=== PATIENT | female | born 1935 | race Caucasian/White ===

== ENCOUNTER 2019-09-24 14:12 | Inpatient (IN) ==
--- NOTE | 2019-09-24 16:56 | HISTORY AND PHYSICAL ---
Ms. Sinha stated that she was in normal state of health. They were headed to the [employer] market in [place] with her 2 daughters and early this morning her daughters noticed trouble with her speech. She said she did not have chest pain. She could not really tell, maybe her speech was a little slow but her daughter felt like she had slurred her words and they went to [facility]. There, there was no other focal neurologic deficits found. There was mild expressive aphasia. She had no trouble answering questions an articulating words when I spoke to her in the emergency room here at [facility] which was about 4 p.m. She still denied chest pain or palpitations or fever, chills. No recent head trauma. PAST MEDICAL HISTORY: 1. Apparently history hypercholesterolemia. 2. Hypertension. 3. She had an episode that she thinks she had a light stroke earlier this year not sure when. 4. She has had some surgery last year. She could not tell me what was. ALLERGIES: She says penicillin allergy, not sure what causes. She thinks she may have been diagnosed with some atrial fibrillation but she is not sure about. She was worked up for some type of heart problem she could not remember what it was. Apparently she has had some gastroesophageal reflux symptoms in the past. SOCIAL HISTORY: Former smoker. Has not smoked in a long time. No alcohol or illicit drugs. FAMILY HISTORY: Mother had history of hypertension, not aware of anything else. She is apparently up-to-date with her immunizations influenza, pneumococcus. Last tetanus was within 10 years ago. REVIEW OF SYSTEMS: General: No weight gain or loss. No fever, chills. HEENT: Unremarkable. Respiratory: No increased work of breathing or dyspnea. Cardiovascular: No chest pain or tachy palpitations. GI/: No gross hematuria. No gross hematochezia. No complaints of constipation or diarrhea. Musculoskeletal/Neurologic: No focal deficits other than her speech. I did not notice weakness in her arms or legs. No visual change. Endocrinologic hematologic: No history that she is aware of. She denies any history of diabetes. MEDICATIONS: She is on AcipHex 20 mg a day, Celexa 20 mg a day, Coreg 25 mg twice a day, folic acid 1 mg a day, Lasix 40 mg a day, lisinopril 10 mg a day, Neurontin 300 mg capsule not sure how often she takes it, Norvasc 5 mg tablet once a day, Remeron 15 mg at bedtime. PHYSICAL EXAMINATION: In the emergency room, well-developed, well-nourished white female with no acute distress. Pupils are equal and round. LUNGS: Clear in all lung gamble. CARDIOVASCULAR: Regular rhythm and rate without murmur or S3. ABDOMEN: Soft. SKIN: Warm and dry. CVP less than 6 cm. No distended neck veins. No cervical or supraclavicular or axillary adenopathy. Neck was supple. No signs of thyromegaly or thyroid nodules. I could not appreciate any carotid bruits. Carotid, radial, and pedal pulses 2+ and symmetrical. Lungs are clear in all lung gamble anterior, posterior and lateral. Cardiovascular exam regular rhythm and rate without murmur or S3. Abdomen is soft. Skin is warm and dry. EKG shows sinus rhythm and really no suspicious ST segments. NEUROLOGIC: Cranial nerves 2-12 appear intact. Visual gamble are full. Hearing appears to be acute. She does not complain of any loss of hearing. Tongue is midline. Facial muscles are symmetrical. Shoulder shrug symmetrical and 4+, dry cleaning attendant strength is 4+ upper and lower extremities. Motor strength seems to be 4+ in all motor groups. No loss of sensation I can detect. LAB: That was drawn in [facility] white blood cell count 4100, hematocrit is 26, hemoglobin is 8.0, MCV of 89, platelet count 188,000. Sodium 140, potassium 4.1, chloride 105, bicarb 20, BUN 35, creatinine 1.47, alkaline phos 68, SGOT and SGPT are 14 and 6 respectively, albumin is 4.1. Pro time is 13, INR is 0.97, PTT is 27. Urinalysis is unremarkable. Chest x-ray was read as cardiomegaly, accentuated interstitial markings, hiatal hernia. No other acute findings. CT of the head without contrast no acute intracranial abnormality. Mild parenchymal atrophy, chronic microangiopathy. ASSESSMENT/PLAN: It appears she has had a transient ischemic event mainly located to her speech center and it seems to have resolved. Looking back at her records, echocardiogram was done in August 2018 and at that time left ventricular size was normal and she had an ejection fraction of 60%, moderate tricuspid regurgitation, moderate pulmonic insufficiency, aortic valve unremarkable, mitral valve had no prolapse and no regurgitation. We are going to check a noninvasive carotid studies on her neck and maybe pursue an MRI of her head on Thursday. We will follow her blood pressure. There is a questionable history of whether she has had atrial fibrillation. She is on aspirin but she does not take it every day. I will put her on aspirin every day for now. We will give her normal saline running at 85 mL an hour her and follow her blood pressures. Will put her back on her normal medications right now and check her thyroid, B12 and folate and go from there. cc: MD Marvin Martínez MD
[2019-09-24] MEDS: NS 1,000 ML IV SCH (18:31)
[2019-09-24] MEDS: ASPIRIN PO SCH (18:31)
[2019-09-24] MEDS: REMERON PO SCH (21:33)
[2019-09-24] MEDS: COREG PO SCH ×2 (21:33→21:37)
[2019-09-24 23:44] LABS: URINE SOURCE CLEAN CATCH
[2019-09-25 01:48] LABS: BILIRUBIN URINE NEGATIVE (NEGATIVE); BLOOD URINE TRACE (NEGATIVE); COLOR YELLOW; GLUCOSE URINE NEGATIVE (NEGATIVE); KETONE URINE NEGATIVE (NEGATIVE); LEUKOCYTES URINE LARGE (NEGATIVE); NITRITE URINE POSITIVE (NEGATIVE); PROTEIN URINE NEGATIVE (NEGATIVE); SP GRAVITY URINE 1.016; TURBIDITY URINE CLEAR (CLEAR); UR EPITHELIAL CELLS <10 /HPF (<10); URINE BACTERIA 4+ /HPF; URINE RBC <10 /HPF (<10); URINE WBC TNTC /HPF (<10); UROBILINOGEN URINE NORMAL (NORMAL)
[2019-09-25] MEDS: NS 1,000 ML IV SCH ×2 (05:05→17:52)
[2019-09-25] MEDS: PRILOSEC PO SCH (06:49)
[2019-09-25 06:56] LABS: BASO# 0.01 X1000 (0.0-0.2); BASO% 0.2 % (0.0-0.8); EOS# 0.17 X1000 (0.0-0.7); EOS% 3.9 % (0.0-10.0); HEMATOCRIT 24.4 % (37.0-47.0); HEMOGLOBIN 7.4 g/dL (12.0-16.0); LYMPH# 0.94 X1000 (1.2-3.4); LYMPH% 21.8 % (20.5-51.1); MCH 27.1 PG (27-31); MCHC 30.3 g/dL (33-37); MCV 89.4 FL (81-99); MPV 11.1 FL (7.4-10.4); NEUT# 2.89 X1000 (1.4-6.5); NEUT% 67.1 % (42.2-75.2); PLT 196 X1000 (130-400); RBC 2.73 XMIL (4.2-5.4); RDW 17.9 % (11.5-14.5); WBC 4.31 X1000 (4.8-10.8)
[2019-09-25 07:09] LABS: ALB/GLOB RATIO 1.5; ALBUMIN 3.5 g/dL (3.5-5.0); CALCIUM 8.9 mg/dL (8.8-10.2); CREATININE 1.3 mg/dL (0.5-0.9); POTASSIUM 4.1 mmol/L (3.5-5.1); TOTAL BILIRUBIN 0.39 mg/dL (0.20-1.00); TOTAL PROTEIN 5.8 g/dL (6.3-8.3)
[2019-09-25] MEDS: ASPIRIN PO SCH (08:56)
[2019-09-25] MEDS: COREG PO SCH ×2 (08:56→21:21)
[2019-09-25] MEDS: FOLIC ACID PO SCH (08:57)
[2019-09-25] MEDS ORDERED: LASIX PO SCH (09:00)
[2019-09-25] MEDS ORDERED: PRINIVIL PO SCH (09:00)
[2019-09-25] MEDS ORDERED: NORVASC PO SCH (09:00)
[2019-09-25] MEDS ORDERED: CELEXA PO SCH (09:00)
--- NOTE | 2019-09-25 15:19 | PROGRESS NOTE ---
DATE: 09/25/2019 Ms. Sinha feels better. Her speech is back to normal. Daughters had some concerns, 1 is that her short-term memory is poor and has been poor for a while. She had some left-sided back pain which sounds like musculoskeletal pain, sound like muscle spasm. They adjusted the height of her bed and that seemed to improve. She is sitting up in a chair. She is eating good swallowing fine. OBJECTIVE: Temperature 97.9 degrees, pulse 56, respirations 18, blood pressure 161/49. Pupils are equal and round.Lungs: Clear in all lung gamble. Cardiovascular: Regular rhythm and rate without murmur or S3. Abdomen: Soft. Skin: Warm and dry and no facial asymmetry. ASSESSMENT AND PLAN: 1. Sound like she had a transient ischemic attack and probably just affected the [facility] speech center. She is on an aspirin. This is resolved. I do not hear carotid bruits but we will get a carotid ultrasound tomorrow. Last echocardiogram showed normal left ventricular size and ejection fraction. Moderate tricuspid regurgitation. Aortic valve was unremarkable. 2. Left lower back pain which looks musculoskeletal. I suspect it was muscle spasm. 3. Family concerned about some cognitive decline, in particular memory trouble. MEDICATIONS: Review of her medications she is on Remeron 15 mg at bedtime, Norvasc 5 mg a day, aspirin 325 mg a day, Coreg 25 mg b.i.d., Celexa 20 mg a day, folic acid 1 mg a day, Lasix 40 mg a day, Prinivil 10 mg a day, getting normal saline at 85 mL an hour, Prilosec 20 mg daily. LABS: Review of her lab from this morning, sodium 142, potassium 4.1, chloride 109, BUN 25, creatinine 1.3. cc: MD Marvin Martínez MD
[2019-09-25] MEDS: ULTRAM PO PRN (16:06)
[2019-09-25] MEDS: REMERON PO SCH (21:22)
[2019-09-26] MEDS: ULTRAM PO PRN (01:02)
[2019-09-26] MEDS: NS 1,000 ML IV SCH (06:00)
[2019-09-26] MEDS: PRILOSEC PO SCH (06:00)
[2019-09-26] MEDS ORDERED: ACIPHEX PO PRN (07:08)
[2019-09-26] MEDS: ASPIRIN PO SCH (08:46)
[2019-09-26] MEDS: FOLIC ACID PO SCH (08:46)
[2019-09-26] MEDS ORDERED: LASIX PO SCH (09:00)
[2019-09-26] MEDS ORDERED: REMERON PO SCH ×2 (09:00→21:00)
[2019-09-26] MEDS ORDERED: PRINIVIL PO SCH (09:00)
[2019-09-26] MEDS ORDERED: NORVASC PO SCH (09:00)
[2019-09-26] MEDS ORDERED: COREG PO SCH (09:00)
[2019-09-26 15:37] VITALS: BP 138/45
[2019-09-26] MEDS ORDERED: CYANOCOBALAMIN IM ONE (17:50)
--- NOTE | 2019-09-26 18:26 | DISCHARGE SUMMARY ---
ADMISSION DATE: 09/24/2019 DISCHARGE DATE: 09/26/2019 FINAL DIAGNOSES: 1. Transient ischemic attack with brief expressive aphasia. 2. Anemia, possibly vitamin B12 deficiency versus chronic kidney disease anemia. 3. History of hypertension. HISTORY OF PRESENT ILLNESS: Mrs. Sinha is an 84-year-old woman who was riding to a [employer] market in [place] with her two daughters when she suddenly noticed difficulty speaking. Daughters brought her to [facility] emergency room where she was evaluated and she requested transfer here. CT scan of the head there was read as no acute intracranial abnormality. Physical exam revealed unremarkable vital signs and by the time Dr. Myers evaluated her, her speech was back to normal. Neurologic exam was likewise normal. HOSPITAL COURSE: She was monitored over the weekend and had no significant arrhythmias. She underwent a carotid Doppler exam, official results are pending, but the tv technician did not note any abnormalities. She was evaluated by Physical Therapy and Speech Therapy and felt to have no need for further therapy. Because of her anemia, recent laboratory studies done in the office were reviewed, documenting normal iron studies, but low folate and B12 level of 248. She has been on folate replacement but I have ordered a methylmalonic acid test, which was done this morning but results are pending. She will probably need intramuscular B12 replacement should this return elevated and will follow up in the office in one to two weeks. DISCHARGE MEDICATIONS: AcipHex 20 mg daily, Celexa 20 mg daily, Coreg 25 mg twice a day, folic acid 1 mg daily, Lasix 40 mg daily, lisinopril 10 mg daily, Norvasc 2.5 mg twice a day, mirtazapine 15 mg at bedtime. cc: Marvin Wilkerson MD
[2019-09-26] MEDS ORDERED: NEURONTIN PO SCH (21:00)
--- NOTE | 2019-09-28 07:10 | Carotid Study ---
DATE: 09/26/2019 REQUEST PHYSICIAN: Dr. Myers. READING PHYSICIAN: Dr. Hidalgo. MANAGER SIMULATION: Brandi. INDICATION: TIA. 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 On the right side, there is irregular plaque at the proximal right internal carotid artery producing elevated velocities and turbulent flow. The percent stenosis is 40 to 59 percent. INTERPRETATION: Moderate stenosis of the right internal carotid artery which is not hemodynamically significant. The left internal carotid artery is occluded indication. cc: MD Peter Anderson MD Russell T. Barr, MD
== END 2019-09-26 18:31 | disposition home or self-care (01) | DRG 68 ==
LOC: DIRADM 14:12 → EDIPHOLD 15:44 → 4N 18:06
PROVIDERS: ADMIT Internal Medicine; ATTEND Internal Medicine